=== PATIENT | female | born 1980 | race Hispanic/Latino ===

== ENCOUNTER 2017-07-27 13:54 | Emergency (ER) | payer BC ==
[2017-07-27 15:33] LABS: #Basophils 0.1 thou/uL (0.0-0.2); #Eosinphils 0.1 thou/uL (0.0-0.7); #Lymphocytes 2.3 thou/uL (1.20-3.40); #Monocytes 0.6 thou/uL (0.11-0.59); #Neutrophils 6.1 thou/uL (1.40-6.50); %Basophils 1.1 % (0.0-1.0); %Eosinophils 1.6 % (0.0-10.0); %Lymphocytes 24.5 % (21.0-51.0); %Monocytes 6.1 % (0.0-10.0); Hematocrit 40.9 % (36.0-47.0); Mean Platelet Volume 8.7 fL (7.4-10.4); Red Blood Cell (RBC) Count 4.68 mill/uL (4.20-5.40); White Blood Cell (WBC) Count 9.2 thou/uL (4.8-10.8)
[2017-07-27 15:49] LABS: ALT (SGPT) 25 U/L (8-55); AST (SGOT) 19 U/L (5-34); Alkaline Phosphatase 66 U/L (40-150); Anion Gap 14 mmol/L (10-20); BUN (Urea Nitrogen) 10 mg/dL (7.0-18.7); Bilirubin, Total 0.3 mg/dL (0.2-1.2); Calc. Creatinine Clearance 0 mL/min (70-130); Calcium 9.2 mg/dL (7.8-10.44); Carbon Dioxide 23 mmol/L (22-29); Chloride 106 mmol/L (98-107); Estimated GFR-MDRD 69; Globulin 3.5 g/dL (2.4-3.5); Protein, Total 7.4 g/dL (6.0-8.3)
[2017-07-27] MEDS ORDERED: Cyclobenzaprine 10 MG TAB ONE (16:27)
[2017-07-27] MEDS ORDERED: diphenhydrAMINE HCl 25 MG CAP ONE (17:21)
[2017-07-27] MEDS ORDERED: Metoclopramide HCl 10 MG TAB PO SCH (17:30)
== END 2017-07-27 18:05 | disposition home or self-care (01) ==
LOC: ERS 13:54
DX: S16.1XXA Strain of muscle, fascia and tendon at neck level, initial encounter (principal); K21.9 Gastro-esophageal reflux disease without esophagitis; E11.9 Type 2 diabetes mellitus without complications; E78.5 Hyperlipidemia, unspecified; Z87.442 Personal history of urinary calculi; X58.XXXA Exposure to other specified factors, initial encounter
CPT/HCPCS: 20552; 36415; 80053; 84703; 85025

== ENCOUNTER 2017-07-28 11:52 | Emergency (ER) | payer BC | END 2017-07-28 14:50 | disposition home or self-care (01) | LOC: ERS 11:52 | DX: M62.838 Other muscle spasm (principal); K21.9 Gastro-esophageal reflux disease without esophagitis; E78.5 Hyperlipidemia, unspecified; Z79.899 Other long term (current) drug therapy | CPT/HCPCS: 99283 ==

== ENCOUNTER 2018-01-06 13:35 | Emergency (ER) | payer BC ==
[~2018-01-06 13:35] MED LIST: ISOVUE-370 76%-LOCM 1 ML ONE
[2018-01-06] MEDS ORDERED: Morphine 2 MG/ML SYRINGE ONE (14:10)
[2018-01-06] MEDS ORDERED: Ondansetron HCl/PF 4 MG/2 ML Vial ONE ×2 (14:10→16:31)
[2018-01-06 14:16] LABS: #Basophils 0.1 thou/uL (0.0-0.2); #Eosinphils 0.3 thou/uL (0.0-0.7); #Lymphocytes 2.8 thou/uL (1.20-3.40); #Monocytes 0.8 thou/uL (0.11-0.59); #Neutrophils 7.8 thou/uL (1.40-6.50); %Basophils 0.9 % (0.0-1.0); %Eosinophils 2.4 % (0.0-10.0); %Lymphocytes 23.7 % (21.0-51.0); %Monocytes 6.7 % (0.0-10.0); %Neutrophils 66.4 % (42.0-75.0); Hemoglobin 13.6 g/dL (12.0-16.0); Mean Corpuscular HGB CONC 33.9 g/dL (32.0-36.0); Mean Corpuscular Hemoglobin 28.5 pg (27.0-31.0); Mean Corpuscular Volume 83.9 fl (81.0-99.0); Mean Platelet Volume 8.9 fL (7.4-10.4); Platelet Count 289 thou/uL (130-400); RBC Distribution Width 11.6 % (11.5-14.5); Red Blood Cell (RBC) Count 4.76 mill/uL (4.20-5.40); White Blood Cell (WBC) Count 11.7 thou/uL (4.8-10.8)
[2018-01-06 14:30] LABS: BHCG - Serum Negative (NEGATIVE); Pregs Control Background? CLEAR/WHITE (CLR/WHITE); Pregs Control Bar Appear? YES (CONTROL BAR)
[2018-01-06 14:33] LABS: ALT (SGPT) 33 U/L (8-55); AST (SGOT) 23 U/L (5-34); Albumin 4.3 g/dL (3.5-5.0); Alkaline Phosphatase 73 U/L (40-150); Anion Gap 13 mmol/L (10-20); BUN (Urea Nitrogen) 8 mg/dL (7.0-18.7); Bilirubin, Total 0.4 mg/dL (0.2-1.2); Calc. Creatinine Clearance 0 mL/min (70-130); Calcium 9.7 mg/dL (7.8-10.44); Carbon Dioxide 21 mmol/L (22-29); Chloride 107 mmol/L (98-107); Estimated GFR-MDRD 77; Globulin 3.1 g/dL (2.4-3.5); Glucose 111 mg/dL (70-105); Potassium 3.6 mmol/L (3.5-5.1); Protein, Total 7.4 g/dL (6.0-8.3); Sodium 137 mmol/L (136-145)
[2018-01-06 14:35] LABS: Prothrombin Time 13.1 SEC (12.0-14.7)
[2018-01-06] MEDS ORDERED: HYDROmorphone 0.5 MG/0.5 ML SYRINGE ONE (14:40)
[2018-01-06] MEDS ORDERED: Fentanyl 100 MCG/2 ML VIAL ONE (15:33)
[2018-01-06 15:41] LABS: Bilirubin Negative (Negative); Blood, Urine Large (Negative); Clarity CLOUDY (Clear); Glucose, Urine (Dipstick) Negative (Negative); Leukocyte Small (Negative); Nitrite Negative (Negative); Protein, Urine (Dipstick) Trace mg/dL (Neg-Trace); Specific Gravity, Urine 1.022 (1.002-1.036); Urobilinogen 0.2 mg/dL (0.2-1.0); pH, Urine 6.5 (5.0-9.0)
[2018-01-06 15:43] LABS: Bacteria/HPF 2+ HPF (None Seen); RBC/HPF GREATER THAN 50-TNTC HPF (0-3); Squamous Epithelial 21-50 HPF (0-3)
[2018-01-06 15:47] LABS: Pathc Cast-AUWi Flag 2.71 (0-2.49)
--- NOTE | 2018-01-06 15:48 | ULT ---
PELVIC ULTRASOUND: 01/06/18 Transabdominal and endovaginal ultrasound of pelvis performed. HISTORY: Right pelvic pain and right lower quadrant pain. Uterus has an unremarkable appearance measuring 6.1 x 2.7 x 4.5 cm. The endometrial stripe appears no rmal measuring approximately 2 mm. The adnexa are obscured by bowel gas. Ovaries are not definitely i dentified on this exam. No free fluid identified. IMPRESSION: 1. Unremarkable appearing uterus. 2. The ovaries and adnexa are not adequately evaluated due to bowel gas. No evidence of adnexal mass or free fluid identified. POS: [facility]
[2018-01-06 15:56] LABS: Hyaline Casts/LPF 0-3 HYALINE CAST LPF (0-3 Hyaline); Manual Microscopic Reviewed? No Path Casts Seen
--- NOTE | 2018-01-06 16:25 | CT ---
CT ABDOMEN AND PELVIS WITH CONTRAST 01/06/18 Multiple axial tomograms obtained through the abdomen and pelvis with IV enhancement. Oral contrast w as not given. HISTORY: Abdominal pain. There is interstitial and hazy alveolar opacities in the posterior left lung base. Some of this may b e atelectasis, although I cannot exclude an inflammatory infiltrate. The liver, spleen and pancreas appear unremarkable. Patient is post cholecystectomy. Small sliding di aphragmatic hernia is noted. Adrenal glands appear normal. There is moderate right hydronephrosis and right hydroureter. There is a 3 to 4 mm calculus in the di stal right ureter near the UVJ. Left collecting structures are unremarkable. No other calcification. Bowel loops unremarkable. Appendix appears normal. Pelvic structures unremarkable. IMPRESSION: 3 to 4 mm obstructing calculus in the distal right ureter producing moderate right hydronephrosis. POS: [facility]
[2018-01-06] MEDS ORDERED: Ketorolac Tromethamine 30 MG/ML VIAL ONE (16:31)
[2018-01-06] MEDS ORDERED: cefTRIAXone\\ROCEPHIN 2 GM in Sodium Chloride 0.9% 100 ML IVPB SCH (16:45)
[2018-01-07 22:22] LABS: Chlamydia by PCR Not Detected (NotDetected); GC by PCR Not Detected (NotDetected)
== END 2018-01-06 18:20 | disposition home or self-care (01) ==
LOC: ERS 13:35
DX: N13.2 Hydronephrosis with renal and ureteral calculous obstruction (principal); N76.0 Acute vaginitis; E11.9 Type 2 diabetes mellitus without complications; K21.9 Gastro-esophageal reflux disease without esophagitis; E78.5 Hyperlipidemia, unspecified
CPT/HCPCS: 36415; 74177; 76856; 80053; 81003; 81015; 83605; 83690; 84703; 85025; 85610; 87086; 87480; 87491; 87510; 87591; 87660; 96361; 96365; 96375; 96376; J0696; J1170; J1885; J2270; J2405; J3010; J7050

== ENCOUNTER 2018-01-07 11:46 | Emergency (ER) | payer BC ==
[2018-01-07] MEDS ORDERED: HYDROcodone/Acetaminophen 7.5/325 mg Tablet ONE (13:43)
[2018-01-07] MEDS ORDERED: Ondansetron ODT 4 MG TAB ONE (13:44)
[2018-01-07 14:12] LABS: Bilirubin Negative (Negative); Blood, Urine Large (Negative); Clarity CLEAR (Clear); Glucose, Urine (Dipstick) Negative (Negative); Leukocyte Negative (Negative); Nitrite Negative (Negative); Protein, Urine (Dipstick) Negative (Neg-Trace); Specific Gravity, Urine 1.014 (1.002-1.036); Urobilinogen 0.2 mg/dL (0.2-1.0)
[2018-01-07 14:26] LABS: Bacteria/HPF None Seen HPF (None Seen); Hyaline Casts/LPF 0-3 HYALINE CAST LPF (0-3 Hyaline); RBC/HPF 21-50 HPF (0-3); WBC/HPF 0-3 HPF (0-3)
== END 2018-01-07 15:10 | disposition home or self-care (01) ==
LOC: ERS 11:46
DX: N20.2 Calculus of kidney with calculus of ureter (principal); K21.9 Gastro-esophageal reflux disease without esophagitis; E78.5 Hyperlipidemia, unspecified
CPT/HCPCS: 81003; 87086; 99284; Q0162

== ENCOUNTER 2019-01-21 07:43 | Emergency (ER) | payer BC ==
[2019-01-21 08:11] LABS: #Basophils 0.1 thou/uL (0.0-0.2); #Eosinphils 0.4 thou/uL (0.0-0.7); #Lymphocytes 2.4 thou/uL (1.20-3.40); #Monocytes 0.5 thou/uL (0.11-0.59); #Neutrophils 4.9 thou/uL (1.40-6.50); %Basophils 1.6 % (0.0-1.0); %Eosinophils 4.4 % (0.0-10.0); %Lymphocytes 28.8 % (21.0-51.0); %Monocytes 6.5 % (0.0-10.0); %Neutrophils 58.8 % (42.0-75.0); Hemoglobin 13.8 g/dL (12.0-16.0); Mean Corpuscular HGB CONC 32.2 g/dL (32.0-36.0); Mean Corpuscular Hemoglobin 27.6 pg (27.0-31.0); Mean Corpuscular Volume 85.8 fL (78.0-98.0); Mean Platelet Volume 9.1 fL (7.4-10.4); Platelet Count 321 thou/uL (130-400); RBC Distribution Width 11.9 % (11.5-14.5); Red Blood Cell (RBC) Count 4.99 mill/uL (4.20-5.40); White Blood Cell (WBC) Count 8.3 thou/uL (4.8-10.8)
--- NOTE | 2019-01-21 08:30 | RAD ---
CHEST ONE VIEW PORTABLE: HISTORY: Chest pain with nausea. COMPARISON: 10/24/2016 FINDINGS: The heart size is normal. The lungs are clear. IMPRESSION: No acute intrathoracic disease. POS: [facility]
[2019-01-21 08:34] LABS: ALT (SGPT) 31 U/L (8-55); AST (SGOT) 20 U/L (5-34); Albumin 4.1 g/dL (3.5-5.0); Alkaline Phosphatase 72 U/L (40-150); Anion Gap 12 mmol/L (10-20); BUN (Urea Nitrogen) 9 mg/dL (7.0-18.7); Bilirubin, Total 0.4 mg/dL (0.2-1.2); Calc. Creatinine Clearance 0 mL/min (70-130); Calcium 9.5 mg/dL (7.8-10.44); Carbon Dioxide 26 mmol/L (22-29); Chloride 106 mmol/L (98-107); Estimated GFR-MDRD 80; Globulin 3.3 g/dL (2.4-3.5); Glucose 92 mg/dL (70-105); Potassium 4.5 mmol/L (3.5-5.1); Protein, Total 7.4 g/dL (6.0-8.3); Sodium 139 mmol/L (136-145)
[2019-01-21] MEDS ORDERED: Ibuprofen 200 MG TAB ONE (09:22)
--- NOTE | 2019-01-23 17:35 | EKG ---
Test Reason : CP Blood Pressure : / mmHG Vent. Rate : 076 BPM Atrial Rate : 076 BPM P-R Int : 148 ms QRS Dur : 078 ms QT Int : 366 ms P-R-T Axes : 045 015 003 degrees QTc Int : 411 ms Normal sinus rhythm Possible Left atrial enlargement Borderline ECG Confirmed by SHAHLA AMIN, HARINDER ([id number]), online content editor RAHEEM TEIXEIRA ([id number]) on 01/23/2019 5:35:36 PM Referred By: Confirmed By:HARINDER GALE MD
== END 2019-01-21 10:55 | disposition home or self-care (01) ==
LOC: ERS 07:43
DX: R07.89 Other chest pain (principal); K21.9 Gastro-esophageal reflux disease without esophagitis; E78.5 Hyperlipidemia, unspecified
CPT/HCPCS: 36415; 71045; 80053; 84484; 85025; 93005

== ENCOUNTER 2019-02-04 14:31 | Emergency (ER) | payer BC ==
[2019-02-04] MEDS ORDERED: Ketorolac Tromethamine 30 MG/ML VIAL ONE (15:38)
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
== END 2019-02-04 16:07 | disposition home or self-care (01) ==
LOC: ERS 14:31
DX: S16.1XXA Strain of muscle, fascia and tendon at neck level, initial encounter (principal); E11.9 Type 2 diabetes mellitus without complications; E78.2 Mixed hyperlipidemia; V43.52XA Car driver injured in collision with other type car in traffic accident, initial encounter
CPT/HCPCS: 72125; 96372; J1885

== ENCOUNTER 2019-05-18 13:24 | Outpatient (CLI) | payer BC | END 2019-05-18 13:25 | disposition home or self-care (01) | LOC: DTY/OP 13:24 | PROVIDERS: ATTEND Surgery | DX: E66.01 Morbid (severe) obesity due to excess calories (principal) | CPT/HCPCS: 97802 ==

== ENCOUNTER 2020-04-18 10:15 | Inpatient (IN) | payer BC ==
[2020-05-16 09:59] VITALS: BMI 38.4
[2020-05-23] MEDS ORDERED: Heparin 5,000 UNITS/ML VIAL ONE (06:31)
[2020-05-23] MEDS ORDERED: Midazolam HCl 2 mg/2 ml Vial ONE (06:50)
[2020-05-23] MEDS ORDERED: Fentanyl 250 MCG/5 ML VIAL ONE (06:50)
[2020-05-23] MEDS ORDERED: Bupivacaine 0.25% HCL 30 ML VIAL ONE (06:59)
[2020-05-23] MEDS ORDERED: Lidocaine 1% w/Epinephrine 1:100K 20 ML VIAL ONE (06:59)
[2020-05-23] MEDS ORDERED: Fentanyl 100 MCG/2 ML VIAL ONE ×2 (09:11→09:32)
--- NOTE | 2020-05-23 09:19 | OP ---
DATE OF PROCEDURE: 05/23/2020 PREOPERATIVE DIAGNOSES: 1. Morbid obesity with a body mass index of 37. 2. Dyslipidemia. 3. Sleep apnea. POSTOPERATIVE DIAGNOSES: 1. Morbid obesity with a body mass index of 37. 2. Dyslipidemia. 3. Sleep apnea. PROCEDURES PERFORMED: 1. Laparoscopic sleeve gastrectomy with GORE staple line reinforcement and 38[place] bougie. 2. Esophagogastroduodenoscopy. ANESTHESIA: General. ESTIMATED BLOOD LOSS: Minimal. COMPLICATIONS: None. SPECIMENS: Stomach. FINDINGS: Normal postoperative esophagogastroduodenoscopy. DESCRIPTION OF PROCEDURE: The patient was taken to the operating room and laid supine on the operating room table. After general anesthetic was obtained, the arms and legs were double strapped to the bariatric table. The abdomen was prepped and draped in a sterile fashion. Left subcostal 5-mm Optiview trocar was placed in the usual fashion. High-flow pneumoperitoneum was obtained. Left and right abdominal 12-mm trocar ports as well as a right subcostal 5-mm port were placed under direct visualization. A 5-mm incision was made at the xiphoid and the Herminio was used to raise the liver off the GE junction. Short gastrics were taken down from mid body stomach to the left kaleigh of diaphragm. Left kaleigh, angle of His, and fundus of the stomach were completely dissected. There was no hiatal hernia. Short gastrics were taken down to a distance of 6 cm proximal to the pylorus. OG-tube was removed and a 38-[place] bougie was brought in, tip left in the antrum of the stomach. Multiple loads of an [place] stapling device were used to form the sleeve. The 1st was fired up at a distance of 6 cm proximal to the pylorus. This was angled up towards the incisor. Care was taken to avoid being to close the incisura. Multiple loads were then fired up along the bougie. Stomach was completely transected at the angle of His. Stomach was removed from the left abdominal incision. The fascial defect was closed using GraNee needle and 0 Vicryl tie. All port sites were infiltrated using local anesthetic. EGD scope was passed through the esophagus and stomach to the level of the duodenum without obstruction. There was no stricture at the incisura. There was no air leakage through the staple line. The EGD scope was pulled and removed. Herminio retractor was removed under direct visualization without bleeding. All ports were removed under direct visualization without bleeding. Pneumoperitoneum was let down. Vicryl was used to close the fascial defect from the left abdominal incisions. All incisions were irrigated and closed using 4-0 Monocryl and Dermabond. The patient was sent to Recovery in stable condition. All instrument counts, needle counts, and lap counts were correct. Job ID: [id number]
[2020-05-23] MEDS ORDERED: Ondansetron PF 4 MG/2 ML Vial IVP PRN ×2 (09:30→12:21)
[2020-05-23] MEDS ORDERED: diphenhydrAMINE 25 MG CAP PO PRN (09:30)
[2020-05-23] MEDS ORDERED: Morphine Sulfate 100 MG in Dextrose 5% in Water 98 ML IV SCH (09:30)
[2020-05-23] MEDS ORDERED: Naloxone HCl 0.4 mg/ml Vial IV PRN (09:30)
[2020-05-23] MEDS ORDERED: diphenhydrAMINE 50 MG/ML VIAL IM/IV PRN (09:30)
[2020-05-23] MEDS ORDERED: Promethazine HCl 25 MG/ML VIAL IM PRN ×2 (09:30→12:21)
[2020-05-23] MEDS ORDERED: Promethazine HCl 25 MG/ML VIAL ONE (10:24)
[2020-05-23] MEDS ORDERED: hydrALAZINE 20 MG/ML VIAL SLOW IVP PRN (12:21)
[2020-05-23] MEDS ORDERED: diphenhydrAMINE 50 MG/ML VIAL IVP PRN (12:21)
[2020-05-23] MEDS ORDERED: Dextrose 50% Abboject 50 ML SYRINGE SLOW IVP PRN (12:21)
[2020-05-23] MEDS ORDERED: Hydrocodone-Acetamin 15 ML UDCUP PO PRN (12:21)
[2020-05-23] MEDS ORDERED: Dextrose 5% in Water 1,000 ML IV PRN (12:21)
[2020-05-23] MEDS ORDERED: Sodium Chloride 0.9% (PF) 10 ML VIAL FS PRN (12:49)
[2020-05-23] MEDS ORDERED: Non-Formulary Medication 1 EACH PO PRN (13:33)
[2020-05-23] MEDS ORDERED: Ondansetron HCl/PF 4 MG/2 ML Vial IVP PRN (13:33)
[2020-05-23] MEDS ORDERED: Promethazine HCl 25 MG/ML VIAL IM/IV PRN (13:33)
[2020-05-23] MEDS ORDERED: Rocuronium Bromide 10 MG/ML (10ML VIAL) ONE (13:43)
[2020-05-23] MEDS ORDERED: Lidocaine 1% PF 5 ML VIAL ONE (13:43)
[2020-05-23] MEDS ORDERED: Dexamethasone 20 MG/5 ML VIAL ONE (13:43)
[2020-05-23] MEDS ORDERED: Ondansetron PF 4 MG/2 ML Vial ONE (13:43)
[2020-05-23] MEDS ORDERED: Glycopyrrolate 0.2 MG/ML 5 ML SYRINGE ONE (13:43)
[2020-05-23] MEDS ORDERED: PROPOFOL 200 MG/20 ML VIAL ONE (13:43)
[2020-05-23] MEDS ORDERED: EPHEDRINE 25 MG/5 ML SYRINGE ONE (13:43)
[2020-05-23] MEDS ORDERED: Pantoprazole 40 MG VIAL IVP SCH (15:00)
[2020-05-23] MEDS: D5 1/2 NS w/20 mEq KCL 1,000 ML IV SCH ×2 (16:03→20:26)
[2020-05-23] MEDS ORDERED: Enoxaparin Sodium 40 MG/0.4 ML SYRINGE SC SCH (21:00)
[2020-05-24 05:37] LABS: #Basophils 0.1 thou/uL (0.0-0.2); #Lymphocytes 2.4 thou/uL (1.20-3.40); #Monocytes 0.7 thou/uL (0.11-0.59); #Neutrophils 11.5 thou/uL (1.40-6.50); %Basophils 0.3 % (0.0-1.0); %Eosinophils 0.2 % (0.0-10.0); %Lymphocytes 16.2 % (21.0-51.0); %Neutrophils 78.3 % (42.0-75.0); Hemoglobin 12.8 g/dL (12.0-16.0); Mean Corpuscular HGB CONC 32.5 g/dL (32.0-36.0); Mean Corpuscular Hemoglobin 28.3 pg (27.0-31.0); Mean Platelet Volume 9.3 fL (7.4-10.4); Platelet Count 298 thou/uL (130-400); RBC Distribution Width 12.8 % (11.5-14.5); Red Blood Cell (RBC) Count 4.52 mill/uL (4.20-5.40); White Blood Cell (WBC) Count 14.6 thou/uL (4.8-10.8)
[2020-05-24 05:54] LABS: Anion Gap 11 mmol/L (10-20); BUN (Urea Nitrogen) 5 mg/dL (7.0-18.7); Calc. Creatinine Clearance 146 mL/min (70-130); Calcium 9.1 mg/dL (7.8-10.44); Carbon Dioxide 23 mmol/L (22-29); Chloride 106 mmol/L (98-107); Estimated GFR-MDRD 83; Glucose 122 mg/dL (70-105); Potassium 4.3 mmol/L (3.5-5.1); Sodium 136 mmol/L (136-145)
[2020-05-24] MEDS: D5 1/2 NS w/20 mEq KCL 1,000 ML IV SCH ×2 (05:57→08:01)
--- NOTE | 2020-05-24 07:24 | PDOC.GSPN ---
Surgery Progress Note: Subj - Subjective Patient reports: tolerating liquids well Narrative: Ms. Ramos is a 40 year old F post-op day #1 from sleeve gastrectomy. She reports she is doing well overall and has been able to tolerate liquids including ice chips, water, and apple juice. She reports abdominal tenderness around her incision sites, but states that the morphine is helping to alleviate her pain. Pain level 8/10. The patient denies any nausea, vomiting, fever, chest pain, or shortness of breath. She has been getting up and walking to the restroom as well as the hallway yesterday. No problems with bowel movements or urinating. Surgery Progress Note: Obj - Vital signs Vital signs: Vital Signs - Most Recent Temp Pulse Resp BP Pulse Ox 98.4 F 70 16 130/79 97 05/24/20 03:39 05/24/20 03:39 05/24/20 03:39 05/24/20 03:39 05/24/20 03:39 - Physical Exam Cardiovascular: regular rate and rhythm Respiratory: clear to auscultation Abdomen: soft, nondistended, positive bowel sounds, appropriately tender Surgery Progress Note: Results - Labs Result Diagrams: 05/24/20 05:14 05/24/20 05:14 Lab results: Laboratory Results - last 24 hr 05/24/20 05/24/20 05:14 05:14 WBC 14.6 H RBC 4.52 Hgb 12.8 Hct 39.3 MCV 87.0 MCH 28.3 MCHC 32.5 RDW 12.8 Plt Count 298 MPV 9.3 Neutrophils % 78.3 H Lymphocytes % 16.2 L Monocytes % 5.0 Eosinophils % 0.2 Basophils % 0.3 Neutrophils # 11.5 H Lymphocytes # 2.4 Monocytes # 0.7 H Eosinophils # 0.0 Basophils # 0.1 Sodium 136 Potassium 4.3 Chloride 106 Carbon Dioxide 23 Anion Gap 11 BUN 5 L Creatinine 0.77 Estimated GFR (MDRD) 83 Glucose 122 H Calcium 9.1 Surgery Progress Note: A/P - Problem (1) Morbid obesity Current Visit: Yes Code(s): E66.01 - MORBID (SEVERE) OBESITY DUE TO EXCESS CALORIES Status: Acute - Plan Plan: Ms. Ramos is a 40 F post-op day #1 sleeve gastrectomy. She is tolerating liquids well. Plan to discharge if no other issues.
[2020-05-24] MEDS ORDERED: Pantoprazole 40 MG VIAL IVP SCH (09:00)
[2020-05-24 12:06] VITALS: TEMP 98
[2020-05-24 12:12] VITALS: BP 155/85
--- NOTE | 2020-05-24 23:01 | DIS ---
DATE OF ADMISSION: 05/23/2020 DATE OF DISCHARGE: 05/24/2020 ADMIT DIAGNOSIS: Morbid obesity. DISCHARGE DIAGNOSIS: Morbid obesity. PROCEDURE PERFORMED: Laparoscopic sleeve by Daly without complication. CONDITION ON DISCHARGE: Improved. STAFF: Yung Kauffman MD HOSPITAL COURSE: On postop day 1, the patient is tolerating liquids. She is ambulatory. No nausea. She is discharged home. She will follow up with me in 2 weeks. Job ID: [id number]
== END 2020-05-24 12:20 | disposition home or self-care (01) | DRG 621 ==
LOC: SURG A 05-23 06:06 → SURG B 05-23 12:02
PROVIDERS: ADMIT Surgery; ATTEND Surgery
PROC: 0DB64Z3 Excision of Stomach, Percutaneous Endoscopic Approach, Vertical (ICD-10-PCS; principal; 2020-05-23)
PROC: 0DJ08ZZ Inspection of Upper Intestinal Tract, Via Natural or Artificial Opening Endoscopic (ICD-10-PCS; 2020-05-23)
DX: E66.01 Morbid (severe) obesity due to excess calories (principal); E78.5 Hyperlipidemia, unspecified; G47.30 Sleep apnea, unspecified; J30.2 Other seasonal allergic rhinitis; F32.9 Major depressive disorder, single episode, unspecified; Z99.89 Dependence on other enabling machines and devices; Z79.899 Other long term (current) drug therapy; Z91.040 Latex allergy status; Z68.38 Body mass index [BMI] 38.0-38.9, adult
CPT/HCPCS: 36415; 80048; 85025; 88307; 88312; 94760; C9113; J0690; J1100; J1644; J1650; J2250; J2405; J2550; J2704; J3010; J3480; S0020

== ENCOUNTER 2020-05-18 05:34 | Outpatient (CLI) | payer BC, OTHER ==
--- NOTE | 2020-05-18 09:03 | RAD ---
Exam: Chest 2 views: HISTORY: Preoperative evaluation: COMPARISON: 01/21/2019 FINDINGS: Considerably less inspiration than on the prior study resulted in slight fullness of the cardiac silh ouette as well as some increased markings in the bases favored to be some vascular crowding although minimal early basilar subsegmental atelectasis. No confluent pneumonia, overt edema, or sign ificant pleural effusion. IMPRESSION: Minimally less than optimal inspiration with some vascular crowding the bases. No significant acute p rocess.
[2020-05-18 11:09] LABS: #Basophils 0.1 thou/uL (0.0-0.2); #Eosinphils 0.4 thou/uL (0.0-0.7); #Lymphocytes 3.3 thou/uL (1.20-3.40); #Monocytes 0.6 thou/uL (0.11-0.59); #Neutrophils 5.5 thou/uL (1.40-6.50); %Basophils 1.5 % (0.0-1.0); %Eosinophils 4.4 % (0.0-10.0); %Lymphocytes 33.1 % (21.0-51.0); %Monocytes 5.5 % (0.0-10.0); %Neutrophils 55.6 % (42.0-75.0); Hemoglobin 13.3 g/dL (12.0-16.0); Mean Corpuscular HGB CONC 32.4 g/dL (32.0-36.0); Mean Corpuscular Hemoglobin 27.7 pg (27.0-31.0); Mean Corpuscular Volume 85.5 fL (78.0-98.0); Mean Platelet Volume 10.1 fL (7.4-10.4); Platelet Count 302 thou/uL (130-400); RBC Distribution Width 12.9 % (11.5-14.5); Red Blood Cell (RBC) Count 4.79 mill/uL (4.20-5.40)
[2020-05-18 11:46] LABS: ALT (SGPT) 26 U/L (8-55); AST (SGOT) 19 U/L (5-34); Albumin 4.3 g/dL (3.5-5.0); Alkaline Phosphatase 80 U/L (40-110); Anion Gap 14 mmol/L (10-20); BUN (Urea Nitrogen) 12 mg/dL (7.0-18.7); Bilirubin, Total 0.4 mg/dL (0.2-1.2); Calc. Creatinine Clearance 0 mL/min (70-130); Calcium 9.2 mg/dL (7.8-10.44); Carbon Dioxide 22 mmol/L (22-29); Chloride 107 mmol/L (98-107); Estimated GFR-MDRD 77; Globulin 2.7 g/dL (2.4-3.5); Glucose 142 mg/dL (70-105); Potassium 4.5 mmol/L (3.5-5.1); Sodium 138 mmol/L (136-145)
[2020-05-18 11:50] LABS: Hemoglobin A1c 5.5 % (4.0-6.0)
[2020-05-19 12:48] LABS: SARS-CoV-2 MS2 Positive; SARS-CoV-2 N Gene Negative; SARS-CoV-2 S Gene Negative; SARS-CoV-2 orf1ab Negative
== END 2020-05-18 05:35 | disposition home or self-care (01) ==
LOC: LABBT 05:34
PROVIDERS: ATTEND Surgery
DX: Z01.818 Encounter for other preprocedural examination (principal); Z11.59 Encounter for screening for other viral diseases; E66.01 Morbid (severe) obesity due to excess calories; R91.8 Other nonspecific abnormal finding of lung field
CPT/HCPCS: 71046; 80053; 83036; 85025; 87635; 93005; 93010; U0003

== ENCOUNTER 2025-10-26 21:22 | Inpatient (IN) | payer BC ==
[2025-10-27 00:04] VITALS: BMI 27.6
[2025-10-27] MEDS ORDERED: Glucagon 1 MG/ML KIT IM PRN (00:24)
[2025-10-27] MEDS ORDERED: hydrALAZINE 20 MG/ML VIAL SLOW IVP PRN (00:24)
[2025-10-27] MEDS ORDERED: Dextrose 50% Abboject 50 ML SYRINGE SLOW IVP PRN (00:24)
[2025-10-27] MEDS: Ondansetron PF 4 MG/2 ML Vial IVP PRN (00:48)
[2025-10-27] MEDS: Methocarbamol 500 MG TAB PO PRN (01:05)
[2025-10-27] MEDS: Pantoprazole 40 MG DR.TAB PO SCH ×2 (02:08→08:59)
[2025-10-27 06:20] LABS: #Basophils 0.08 10x3/uL (0.0-0.2); #Eosinophils 0.20 10x3/uL (0.0-0.7); #Monocytes 0.69 10x3/uL (0.11-0.59); #Neutrophils 5.48 10x3/uL (1.40-6.50); %Basophils 0.9 % (0.0-1.0); %Eosinophils 2.2 % (0.0-10.0); %Lymphocytes 30.4 % (21.0-51.0); %Monocytes 7.4 % (0.0-10.0); %Neutrophils 58.9 % (42.0-75.0); Hematocrit 37.3 % (36.0-47.0); Hemoglobin 11.7 g/dL (12.0-16.0); Mean Corpuscular Hemoglobin 27.0 pg (27.0-31.0); Mean Corpuscular Volume 86.1 fL (78.0-98.0); Platelet Count 285 10x3/uL (130-400); Red Blood Cell (RBC) Count 4.33 mill/uL (4.20-5.40); White Blood Cell (WBC) Count 9.30 10x3/uL (4.8-10.8)
[2025-10-27 06:41] LABS: ALT (SGPT) 16 U/L (Less than 34); AST (SGOT) 35 U/L (11-34); Albumin 3.2 g/dL (3.1-4.5); Alkaline Phosphatase 71 U/L (40-110); Anion Gap 13 mmol/L (10-20); BUN (Urea Nitrogen) 4 mg/dL (7.0-18.7); Bilirubin, Total 0.7 mg/dL (0.3-1.2); Calc. Creatinine Clearance 110 mL/min (70-130); Calcium 8.7 mg/dL (7.8-10.44); Carbon Dioxide 24 mmol/L (22-29); Chloride 110 mmol/L (98-107); Globulin 2.8 g/dL (2.4-3.5); Glucose 91 mg/dL (70-105); Potassium 4.3 mmol/L (3.5-5.1); Sodium 143 mmol/L (136-145)
[2025-10-27] MEDS: Enoxaparin 40 MG (0.4 mL) SYRINGE SC SCH (08:59)
[2025-10-27] MEDS: Senokot S 8.6-50 MG TAB PO SCH (08:59)
[2025-10-27] MEDS: Acetaminophen 325 MG TAB PO PRN (17:23)
[2025-10-28 07:13] LABS: #Basophils 0.07 10x3/uL (0.0-0.2); #Eosinophils 0.22 10x3/uL (0.0-0.7); #Monocytes 0.37 10x3/uL (0.11-0.59); #Neutrophils 1.70 10x3/uL (1.40-6.50); %Basophils 1.3 % (0.0-1.0); %Eosinophils 4.1 % (0.0-10.0); %Lymphocytes 55.5 % (21.0-51.0); %Monocytes 6.9 % (0.0-10.0); %Neutrophils 32.0 % (42.0-75.0); Hematocrit 36.4 % (36.0-47.0); Hemoglobin 11.9 g/dL (12.0-16.0); Mean Corpuscular Hemoglobin 28.1 pg (27.0-31.0); Mean Corpuscular Volume 86.1 fL (78.0-98.0); Platelet Count 276 10x3/uL (130-400); Red Blood Cell (RBC) Count 4.23 mill/uL (4.20-5.40); White Blood Cell (WBC) Count 5.33 10x3/uL (4.8-10.8)
[2025-10-28 07:30] LABS: ALT (SGPT) 44 U/L (Less than 34); AST (SGOT) 49 U/L (11-34); Albumin 3.2 g/dL (3.1-4.5); Alkaline Phosphatase 76 U/L (40-110); Anion Gap 12 mmol/L (10-20); BUN (Urea Nitrogen) Less than 4 mg/dL (7.0-18.7); Bilirubin, Total 0.3 mg/dL (0.3-1.2); Calc. Creatinine Clearance 96 mL/min (70-130); Calcium 9.0 mg/dL (7.8-10.44); Carbon Dioxide 24 mmol/L (22-29); Chloride 107 mmol/L (98-107); Globulin 2.8 g/dL (2.4-3.5); Glucose 80 mg/dL (70-105); Potassium 4.1 mmol/L (3.5-5.1); Sodium 139 mmol/L (136-145)
[2025-10-28 08:23] VITALS: BP 121/72; TEMP 97.3
== END 2025-10-28 14:33 | disposition home or self-care (01) | DRG 392 ==
LOC: T4-B 23:22
PROVIDERS: ADMIT Surgery; ATTEND Surgery
DX: K57.20 Diverticulitis of large intestine with perforation and abscess without bleeding (principal); Z88.8 Allergy status to other drugs, medicaments and biological substances
CPT/HCPCS: 36415; 74177; 80053; 85025; J1650; J2270; J2405; J2543; J7120